=== PATIENT | female | born 1960 | race Caucasian/White ===

== ENCOUNTER → 2024-01-10 11:24 | Outpatient (REF) | payer OTHER, SELFPAY ==
[2024-01-10 15:08] LABS: % Basophils 0.7 % (0-2); % Eosinophils 0.7 % (0-6); % Immature Granulocytes 0.7 % (0-0.5); % Lymphocytes 37.6 % (20.5-51.1); % Monocytes 13.6 % (1.7-9.3); % Neutrophils 46.7 % (42.2-75.2); Absolute Lymphocytes 1.6 10^3/uL (1.2-3.4); Absolute Monocytes 0.6 10^3/uL (0.1-0.6); Hematocrit 35.9 % (37.0-47.0); Hemoglobin 12.1 g/dL (12.0-16.0); Mean Corp Hgb Conc. 33.7 g/dL (33.0-37.0); Mean Corpuscular Hgb 28.5 pg (27.0-31.0); Mean Corpuscular Volume 84.5 fL (81.0-99.0); Nucleated Red Blood Cells % 0 %; Platelet Count 361 10^3/uL (130-400); Red Blood Cell Count 4.25 10^6/uL (4.20-5.40); Red Cell Dist. Width 14.2 % (11.5-14.5); White Blood Cell Count 4.2 10^3/uL (4.8-10.8)
[2024-01-10 15:12] LABS: ALT (SGPT) 22 U/L (0-35); AST (SGOT) 28 U/L (14-36); Alkaline Phosphatase 38 U/L (38-126); Blood Urea Nitrogen 20 mg/dl (7-17); Calcium 10.2 mg/dl (8.4-10.2); Carbon Dioxide 28 mmol/L (22-30); Chloride 102 mmol/L (98-107); Glucose 91 mg/dl (70-99); Potassium 4.8 mmol/L (3.5-5.1); Sodium 137 mmol/L (135-145); Total Bilirubin 0.7 mg/dl (0.2-1.3); Total Protein 7.7 g/dl (6.3-8.2); eGFR > 60.00
[2024-01-10 15:17] LABS: C-Reactive Protein < 5.00 mg/L (0.0-10.00)
[2024-01-10 15:35] LABS: Free T4 0.87 ng/dl (0.78-2.19); Vitamin D, 25-OH*** 55.6 ng/mL (30-80)
[2024-01-10 15:40] LABS: Erythrocyte Sed Rate 20 mm/hour (0-20)
[2024-01-10 15:48] LABS: TSH 1.78 uIU/ml (0.47-4.68)
== END ==
LOC: HWLAB 11:24
PROVIDERS: ATTENDING PHYSICIAN Internal Medicine Rheumatology; FAMILY PHYSICIAN Family Medicine; REFERRING PHYSICIAN Podiatrist Foot & Ankle Surgery
DX: M06.09 Rheumatoid arthritis without rheumatoid factor, multiple sites (principal); Z79.899 Other long term (current) drug therapy; M81.0 Age-related osteoporosis without current pathological fracture; E78.5 Hyperlipidemia, unspecified
CPT/HCPCS: 36415; 80053; 82306; 84439; 84443; 85025; 85652; 86140

== ENCOUNTER → 2024-01-13 14:46 | Outpatient (REF) | payer OTHER, SELFPAY | LOC: HWWDC 14:46 | PROVIDERS: ATTENDING PHYSICIAN Obstetrics & Gynecology; FAMILY PHYSICIAN Family Medicine | DX: Z12.31 Encounter for screening mammogram for malignant neoplasm of breast (principal) | CPT/HCPCS: 77063; 77067 ==

== ENCOUNTER → 2024-02-24 08:20 | Outpatient (REF) | payer OTHER, SELFPAY ==
[2024-02-24 10:00] LABS: % Basophils 0.4 % (0-2); % Eosinophils 1.3 % (0-6); % Immature Granulocytes 0.7 % (0-0.5); % Lymphocytes 43.5 % (20.5-51.1); % Monocytes 10.7 % (1.7-9.3); % Neutrophils 43.4 % (42.2-75.2); Absolute Eosinophils 0.1 10^3/uL (0-0.7); Absolute Monocytes 0.5 10^3/uL (0.1-0.6); Hematocrit 37.5 % (37.0-47.0); Hemoglobin 12.3 g/dL (12.0-16.0); Mean Corp Hgb Conc. 32.8 g/dL (33.0-37.0); Mean Corpuscular Volume 88.4 fL (81.0-99.0); Mean Platelet Volume 9.4 fL (7.4-10.4); Nucleated Red Blood Cells % 0 %; Platelet Count 333 10^3/uL (130-400); Red Blood Cell Count 4.24 10^6/uL (4.20-5.40); Red Cell Dist. Width 13.6 % (11.5-14.5); White Blood Cell Count 4.6 10^3/uL (4.8-10.8)
[2024-02-24 10:11] LABS: ALT (SGPT) 21 U/L (0-35); AST (SGOT) 27 U/L (14-36); Albumin 4.8 g/dl (3.5-5.0); Alkaline Phosphatase 39 U/L (38-126); Blood Urea Nitrogen 18 mg/dl (7-17); Calcium 9.9 mg/dl (8.4-10.2); Carbon Dioxide 29 mmol/L (22-30); Chloride 104 mmol/L (98-107); Glucose 97 mg/dl (70-99); HDL Cholesterol 104 mg/dl; LDL Cholesterol, Calculated 73 mg/dl; Potassium 4.6 mmol/L (3.5-5.1); Sodium 140 mmol/L (135-145); Total Bilirubin 0.8 mg/dl (0.2-1.3); Total Cholesterol 203 mg/dl (50-199); Total Protein 7.4 g/dl (6.3-8.2); Triglyceride 134 mg/dl (10-149); Very Low Density Lipoprotein 26 mg/dl (0-30); eGFR > 60.00
[2024-02-24 11:01] LABS: TSH 3.15 uIU/ml (0.47-4.68)
== END ==
LOC: HWLAB 08:20
PROVIDERS: ATTENDING PHYSICIAN Family Medicine
DX: Z00.00 Encounter for general adult medical examination without abnormal findings (principal)
CPT/HCPCS: 36415; 80053; 80061; 84443; 85025

== ENCOUNTER → 2024-04-11 11:22 | Outpatient (REF) | payer OTHER, SELFPAY ==
[2024-04-11 16:19] LABS: % Basophils 0.6 % (0-2); % Eosinophils 1.1 % (0-6); % Immature Granulocytes 0.6 % (0-0.5); % Lymphocytes 34.9 % (20.5-51.1); % Monocytes 8.6 % (1.7-9.3); % Neutrophils 54.2 % (42.2-75.2); Absolute Eosinophils 0.1 10^3/uL (0-0.7); Absolute Lymphocytes 1.6 10^3/uL (1.2-3.4); Absolute Monocytes 0.4 10^3/uL (0.1-0.6); Absolute Neutrophils 2.5 10^3/uL (1.4-6.5); Hematocrit 37.8 % (37.0-47.0); Hemoglobin 12.9 g/dL (12.0-16.0); Mean Corp Hgb Conc. 34.1 g/dL (33.0-37.0); Mean Corpuscular Hgb 29.9 pg (27.0-31.0); Mean Corpuscular Volume 87.5 fL (81.0-99.0); Mean Platelet Volume 9.7 fL (7.4-10.4); Nucleated Red Blood Cells % 0 %; Platelet Count 348 10^3/uL (130-400); Red Blood Cell Count 4.32 10^6/uL (4.20-5.40); Red Cell Dist. Width 13.6 % (11.5-14.5); White Blood Cell Count 4.7 10^3/uL (4.8-10.8)
[2024-04-11 16:30] LABS: ALT (SGPT) 18 U/L (0-35); AST (SGOT) 26 U/L (14-36); Albumin 4.8 g/dl (3.5-5.0); Alkaline Phosphatase 39 U/L (38-126); Blood Urea Nitrogen 17 mg/dl (7-17); Calcium 10.4 mg/dl (8.4-10.2); Carbon Dioxide 27 mmol/L (22-30); Chloride 104 mmol/L (98-107); Erythrocyte Sed Rate 17 mm/hour (0-20); Glucose 114 mg/dl (70-99); Potassium 4.2 mmol/L (3.5-5.1); Sodium 139 mmol/L (135-145); Total Bilirubin 0.6 mg/dl (0.2-1.3); Total Protein 7.3 g/dl (6.3-8.2); eGFR > 60.00
[2024-04-11 16:32] LABS: C-Reactive Protein < 5.00 mg/L (0.0-10.00)
== END ==
LOC: HWLAB 11:22
PROVIDERS: ATTENDING PHYSICIAN Internal Medicine Rheumatology; FAMILY PHYSICIAN Family Medicine
DX: M06.09 Rheumatoid arthritis without rheumatoid factor, multiple sites (principal); M81.0 Age-related osteoporosis without current pathological fracture; E78.5 Hyperlipidemia, unspecified; Z79.899 Other long term (current) drug therapy
CPT/HCPCS: 36415; 80053; 85025; 85652; 86140

== ENCOUNTER → 2024-09-21 13:11 | Outpatient (REF) | payer OTHER, SELFPAY ==
[2024-09-21 15:59] LABS: % Basophils 0.6 % (0-2); % Eosinophils 1.2 % (0-6); % Immature Granulocytes 0.6 % (0-0.5); % Lymphocytes 36.1 % (20.5-51.1); % Monocytes 12.2 % (1.7-9.3); % Neutrophils 49.3 % (42.2-75.2); Absolute Lymphocytes 1.2 10^3/uL (1.2-3.4); Absolute Monocytes 0.4 10^3/uL (0.1-0.6); Absolute Neutrophils 1.6 10^3/uL (1.4-6.5); Hematocrit 38.9 % (37.0-47.0); Hemoglobin 12.7 g/dL (12.0-16.0); Mean Corp Hgb Conc. 32.6 g/dL (33.0-37.0); Mean Corpuscular Hgb 28.7 pg (27.0-31.0); Mean Corpuscular Volume 87.8 fL (81.0-99.0); Mean Platelet Volume 9.3 fL (7.4-10.4); Nucleated Red Blood Cells % 0 %; Platelet Count 250 10^3/uL (130-400); Red Blood Cell Count 4.43 10^6/uL (4.20-5.40); Red Cell Dist. Width 13.2 % (11.5-14.5); White Blood Cell Count 3.3 10^3/uL (4.8-10.8)
[2024-09-21 16:04] LABS: ALT (SGPT) 21 U/L (0-35); AST (SGOT) 25 U/L (14-36); Albumin 4.6 g/dl (3.5-5.0); Alkaline Phosphatase 34 U/L (38-126); Blood Urea Nitrogen 20 mg/dl (7-17); Calcium 9.4 mg/dl (8.4-10.2); Carbon Dioxide 30 mmol/L (22-30); Chloride 102 mmol/L (98-107); Glucose 91 mg/dl (70-99); Sodium 138 mmol/L (135-145); Total Bilirubin 0.4 mg/dl (0.2-1.3); Total Protein 7.2 g/dl (6.3-8.2); eGFR > 60.00
[2024-09-21 16:48] LABS: Erythrocyte Sed Rate 23 mm/hour (0-20)
== END ==
LOC: HWLAB 13:11
PROVIDERS: ATTENDING PHYSICIAN Internal Medicine Rheumatology; FAMILY PHYSICIAN Student in an Organized Health Care Education/Training Program
DX: Z79.899 Other long term (current) drug therapy (principal); M06.09 Rheumatoid arthritis without rheumatoid factor, multiple sites
CPT/HCPCS: 36415; 80053; 85025; 85652; 86140

== ENCOUNTER → 2025-01-18 15:51 | Outpatient (REF) | payer OTHER, SELFPAY | LOC: RCS 15:51 | PROVIDERS: ATTENDING PHYSICIAN Physician Assistant; FAMILY PHYSICIAN Student in an Organized Health Care Education/Training Program | DX: R42 Dizziness and giddiness (principal); R07.89 Other chest pain; R94.31 Abnormal electrocardiogram [ECG] [EKG] | CPT/HCPCS: 93306 ==

== ENCOUNTER → 2025-01-22 08:25 | Outpatient (REF) | payer OTHER, SELFPAY | LOC: RCS 08:25 | PROVIDERS: ATTENDING PHYSICIAN Physician Assistant; FAMILY PHYSICIAN Student in an Organized Health Care Education/Training Program | DX: R42 Dizziness and giddiness (principal); R07.89 Other chest pain; R94.31 Abnormal electrocardiogram [ECG] [EKG] | CPT/HCPCS: 93017; 93350 ==

== ENCOUNTER → 2025-03-27 12:34 | Outpatient (REF) | payer OTHER, SELFPAY | LOC: HWWDC 12:34 | PROVIDERS: ATTENDING PHYSICIAN Obstetrics & Gynecology | DX: Z12.31 Encounter for screening mammogram for malignant neoplasm of breast (principal) | CPT/HCPCS: 77063; 77067 ==

== ENCOUNTER → 2025-04-25 06:46 | Outpatient (REF) | payer OTHER, SELFPAY | LOC: RSP 06:46 | PROVIDERS: ATTENDING PHYSICIAN Student in an Organized Health Care Education/Training Program | DX: R07.89 Other chest pain (principal) | CPT/HCPCS: 88738; 94010; 94727; 94729 ==

== ENCOUNTER → 2025-06-24 08:52 | Outpatient (REF) | payer OTHER, SELFPAY | LOC: HWRAD 08:52 | PROVIDERS: ATTENDING PHYSICIAN Internal Medicine Rheumatology; FAMILY PHYSICIAN Family Medicine | DX: M81.0 Age-related osteoporosis without current pathological fracture (principal) | CPT/HCPCS: 77080 ==